=== PATIENT | male | born 1950 | race African-American/Black ===

== ENCOUNTER 2017-04-09 11:39 | Emergency (ER) | payer OTHER ==
[~2017-04-09] VITALS: Ht 170.2 cm; Wt 72.6 kg
[2017-04-09 11:40] VITALS: BP 131/91
[2017-04-09] MEDS ORDERED: ASPI81CT27 PO (11:54)
[2017-04-09] MEDS ORDERED: ATOR20TA PO (11:54)
[2017-04-09] MEDS ORDERED: ACET500C86 PO (11:54)
[2017-04-09] MEDS ORDERED: VITA1TAB83 PO (11:54)
[2017-04-09] MEDS ORDERED: GLIM2TAB PO (11:54)
[2017-04-09] MEDS ORDERED: PHO667 PO (11:54)
[2017-04-09] MEDS ORDERED: PRAS10TA PO (11:54)
[2017-04-09] MEDS ORDERED: LOSA50TA1 PO (11:54)
[2017-04-09] MEDS ORDERED: CARV12.5 PO (11:54)
[2017-04-09] MEDS ORDERED: NITR0.4T1 SL (11:54)
[2017-04-09] MEDS ORDERED: AMLO-27 PO (11:54)
--- NOTE | 2017-04-09 12:00 | NUR ---
PT W/C ASSISTED TO BED 5.
--- NOTE | 2017-04-09 12:05 | NUR ---
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 WILL CONTINUE TO MONITOR.
--- NOTE | 2017-04-09 12:16 | NUR ---
ER MD DR. DUPONT EVALUATING PT AT BEDSIDE.
[2017-04-09] MEDS ORDERED: KETOROLAC 30 MG/ML VIAL IM ONE (12:25)
--- NOTE | 2017-04-09 12:40 | NUR ---
XRAY AT BEDSIDE.
[2017-04-09 12:54] LABS: CARBON DIOXIDE 28.1 mmol/L (21-32); POTASSIUM 4.1 mmol/L (3.5-5.1)
[2017-04-09 13:27] LABS: CREATININE 8.2 mg/dL (0.7-1.3)
--- NOTE | 2017-04-09 13:38 | NUR ---
PT APPEARS TO BE RESTING COMFORTABLY IN BED; STATES RELIEF FROM PAIN 4/10 AT THIS TIME; POSITIONED FOR COMFORT; RR EVEN/UNLABORED; WILL CONTINUE TO MONITOR.
--- NOTE | 2017-04-09 15:30 | NUR ---
Patient discharged with v/s stable. Written and verbal after care instructions given and explained. Patient alert, oriented and verbalized understanding of instructions. Wheel Chair Assisted with to car. All questions addressed prior to discharge. ID band removed. Patient advised to follow up with PMD. Rx of NORCO given. Patient educated on indication of medication including possible reaction and side effects. Opportunity to ask questions provided and answered.
[2017-04-09 15:33] VITALS: BP 139/79
== END 2017-04-09 15:30 | disposition home or self-care (01) ==
LOC: MED 11:39
DX: M62.830 Muscle spasm of back (principal); E11.22 Type 2 diabetes mellitus with diabetic chronic kidney disease; N18.6 End stage renal disease; E21.3 Hyperparathyroidism, unspecified; H54.0 Blindness, both eyes; Z86.73 Personal history of transient ischemic attack (TIA), and cerebral infarction without residual deficits; Z99.2 Dependence on renal dialysis
CPT/HCPCS: 36415; 71010; 80048; 93005; 96372; 99285; J1885; Q0092